=== PATIENT | male | born 1955 | race Caucasian/White ===

== ENCOUNTER → 2023-09-27 10:15 | Outpatient (REF) | payer OTHER, SELFPAY | LOC: DHCBS MAIN 10:15 | PROVIDERS: ATTENDING PHYSICIAN Internal Medicine Interventional Cardiology; FAMILY PHYSICIAN Family Medicine | DX: I10 Essential (primary) hypertension (principal); R00.2 Palpitations | CPT/HCPCS: 93306 ==

== ENCOUNTER → 2023-11-10 10:43 | Outpatient (REF) | payer OTHER, SELFPAY | LOC: RAD 10:43 | PROVIDERS: ATTENDING PHYSICIAN Family Medicine | DX: N50.819 Testicular pain, unspecified (principal) | CPT/HCPCS: 76870; 93976 ==

== ENCOUNTER → 2024-11-25 09:28 | Outpatient (REF) | payer OTHER, SELFPAY | LOC: HWRAD 09:28 | PROVIDERS: ATTENDING PHYSICIAN Physician Assistant | DX: S99.911A Unspecified injury of right ankle, initial encounter (principal) | CPT/HCPCS: 73610 ==

== ENCOUNTER 2025-01-01 08:15 | Outpatient (RCR) | payer OTHER, SELFPAY | END 2025-01-01 23:59 | disposition home or self-care (01) | LOC: RPT 08:15 | PROVIDERS: ATTENDING PHYSICIAN Student in an Organized Health Care Education/Training Program; FAMILY PHYSICIAN Family Medicine | DX: S93.421D Sprain of deltoid ligament of right ankle, subsequent encounter (principal); Z73.6 Limitation of activities due to disability; W11.XXXD Fall on and from ladder, subsequent encounter | CPT/HCPCS: 97161 ==

== ENCOUNTER → 2025-02-21 08:20 | Outpatient (REF) | payer OTHER, SELFPAY | LOC: MRI 3T 08:20 | PROVIDERS: ATTENDING PHYSICIAN Specialist; FAMILY PHYSICIAN Family Medicine | DX: R97.20 Elevated prostate specific antigen [PSA] (principal) | CPT/HCPCS: 72197; A9575 ==